=== PATIENT | female | born 1950 | race Hispanic/Latino ===

== ENCOUNTER 2018-10-28 19:10 | Emergency (ER) | payer BC, MEDICARE ==
[~2018-10-28] VITALS: Ht 149.9 cm; Wt 90.7 kg
--- OUTSIDE RECORDS SUMMARY | 2018-10-28 19:13 | XMS REPORT | Summary of Care ---
Author Author [facility] [place] Organization [facility] [place] Address Unknown Phone Unavailable Encounter HQ Encntr_alias(FIN) [id number] Date(s): 12/14/14 - 12/14/14 [facility] [place] [address] [place] [id number] [phone] Discharge Disposition: Home Attending Physician: Gilbert Mg MD Vital Signs No data available for this section Problem List No data available for this section Allergies, Adverse Reactions, Alerts No data available for this section Medications No data available for this section Results No data available for this section Immunizations No data available for this section Procedures No data available for this section Social History No data available for this section Assessment and Plan No data available for this section
--- OUTSIDE RECORDS SUMMARY | 2018-10-28 19:13 | XMS REPORT | Summary of Care ---
Author Organization Unknown Address Unknown Phone Unavailable Encounter HQ Encntr_rose([facility]) [id number] Date(s): 12/13/13 - 12/13/13 [facility] Outpatient Imaging - [address] [address] [place] Discharge Disposition: Home Physician Attending: Gilbert Mg MD Reason for Visit V76.12 - SCREEN MAMMOGRA Problem List No data available for this section Allergies, Adverse Reactions, Alerts No data available for this section Medications No data available for this section Medications Administered During Your Visit No data available for this section Immunizations No data available for this section
--- OUTSIDE RECORDS SUMMARY | 2018-10-28 19:13 | XMS REPORT | Summary of Care ---
Author Author [facility] [place] Organization [facility] [place] Address Unknown Phone Unavailable Encounter HQ Encntr_alimartin(FIN) [id number] Date(s): 01/01/16 - 01/01/16 [facility] [place] [address] [place] [phone] Discharge Disposition: Home or Self Care Attending Physician: Gilbert Mg MD Vital Signs [...]
--- OUTSIDE RECORDS SUMMARY | 2018-10-28 19:13 | XMS REPORT | Continuity of Care Document ---
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 Role Phone [facility] Unavailable Unavailable Problems Problem Status Onset Date Classification Date Reported Comments Source Pain in left knee 02/19/2018 09/02/2018 [facility] [place] [place] Encounter for screening mammogram for malignant neoplasm of breast 01/13/2018 07/28/2018 [facility] [place] LEFT KNEE Active 11/06/2017 [facility] [place] LT KNEE OA Active 11/06/2017 [facility] [place] UNK Active 12/27/2016 [facility] V76.12 - SCREEN MAMMOGRA Active 12/14/2014 [facility] [place] Encounter for screening for osteoporosis 07/28/2018 [facility] [place] Asymptomatic menopausal state 07/28/2018 [facility] [place] Other specified disorders of bone density and structure, unspecified site 07/28/2018 [facility] [place] Muscle weakness (generalized) 09/02/2018 [facility] [place] Stiffness of left knee, not elsewhere classified 09/02/2018 [facility] [place] Difficulty in walking, not elsewhere classified 09/02/2018 [facility] [place] Presence of left artificial knee joint 09/02/2018 [facility] [place] Arthritis (disorder) Active Problem 09/02/2018 [facility] [place],[facility] [place] Diabetes mellitus (disorder) Active Problem 09/02/2018 [facility] [place],[facility] [place] Hypertensive disorder, systemic arterial (disorder) Active Problem 09/02/2018 [facility] [place],[facility] [place] POLYP OF COLON Active [facility] Medications Medication Details Route Status Patient Instructions Ordering Provider Order Date Source Sodium Chloride 0.9% IV 1000 mL 1,000 mL, Rate: 25 ml/hr, Infuse over: 40 hr, Route: IV, Dosing Weight 95 kg, Total Volume: 1,000, Start date: 12/28/16 7:23:00 ENTRY LEVEL ASSISTANT MANAGER, Duration: 30 day, Stop date: 01/27/17 7:22:00 ENTRY LEVEL ASSISTANT MANAGER Inactive 12/28/2016 [facility] Losartan PO, Bedtime, 0 Refill(s) Active 12/27/2016 [facility] Fenofibrate PO, Bedtime, 0 Refill(s) Active 12/27/2016 [facility] Metformin PO, Bedtime, 0 Refill(s) Active 12/27/2016 [facility] NovoLog 8 unit, SUB-Q, TID-Before Meals, 0 Refill(s) Active 12/27/2016 [facility] Insulin Glargine 100 UNT/ML Injectable Solution [Lantus] 50 units, SUB-Q, BID, 0 Refill(s) Active 12/27/2016 [facility] Allergies, Adverse Reactions, Alerts Substance Category Reaction Severity Reaction type Status Date Reported Comments Source No Known Medication Allergies Assertion Drug allergy [facility] [place] Immunizations No Data Provided for This Section Results No Data Provided for This Section Pathology Reports No Data Provided for This Section Diagnostic Reports Report Value Date Source Spine lumbar 2 or 3 views DX EXAM: XR LUMBAR SPINE DATE: 08/01/2018 10:45 CDT ORDERING PHYSICIAN: Frederick Vicente MD CLINICAL INDICATION: - M54.5 Low back pain; TECHNIQUE: AP and lateral views of the lumbar spine COMPARISON: Unavailable FINDINGS: There are 5, nonrib-bearing lumbar vertebral bodies with normal height, shape, and alignment. There is disc space narrowing at T12-L1 with associated vacuum phenomena. There is multilevel facet arthropathy, severe at L4-L5 and L5-S1. This suspected narrowing of the L5-S1 neural foramina. Visualized soft tissues are unremarkable. IMPRESSION: Multilevel facet arthropathy most severe at L4-L5 and L5-S1 There is suspected L5-S1 neural foramen narrowings T12-L1 disc space narrowing 08/01/2018 [facility] [place] Bone Density D[employer] MA BONE DENSITY ASSESSMENT: 01/07/2018 CLINICAL DATA: Post menopausal. Z13.820 Encounter For Screening For Osteoporosis/Z13.820 Encounter For Screening For Osteoporosis COMPARISON: 01/01/2017 Left hip using a Hologic unit from [facility] with reported medium fracture risk, BMD of 0.792g/cm2, and T-score of -1.20. 01/01/2017 Right hip using a Hologic unit from [facility] with reported normal fracture risk, BMD of 0.864g/cm2, T-score of -0.60, and Z-score of 0.60. 01/01/2017 AP L1-L4 region of spine using a Hologic unit from [facility] with reported normal fracture risk, BMD of 0.967g/cm2, T-score of - 0.70, and Z-score of 1.20. FINDINGS: Bone density evaluation was performed 01/07/2018 on the right femur neck using a Hologic unit. The BMD average for the exam is 0.736 g/cm2. The T-score is - 1.00 and the Z-score is 0.50. This matches the World Health Organization's criteria for normal bone density and places the patient within normal limits of fracture risk. An additional bone density evaluation was performed 01/07/2018 on the left femur neck using a Hologic unit. The BMD average for the exam is 0.739 g/cm2. The T- score is -1.00 and the Z-score is 0.50. This matches the World Health Organization's criteria for normal bone density and places the patient within normal limits of fracture risk. An additional bone density evaluation was performed 01/07/2018 on the right hip using a Hologic unit. The BMD average for the exam is 0.903 g/cm2. The T-score is -0.30 and the Z-score is 0.90. Since the previous similar exam of 01/01/2017, there has been a +0.039 or +4.5% change in the BMD value which represents no significant interval change in bone density. This matches the World Health Organization's criteria for normal bone density and places the patient within normal limits of fracture risk. An additional bone density evaluation was performed 01/07/2018 on the left hip using a Hologic unit. The BMD average for the exam is 0.836 g/cm2. The T-score is -0.90 and the Z-score is 0.40. Since the previous similar exam of 01/01/2017, there has been a +0.044 or +5.6% change in the BMD value which represents no significant interval change in bone density. This matches the World Health Organization's criteria for normal bone density and places the patient within normal limits of fracture risk. An additional bone density evaluation was performed 01/07/2018 on the AP L2-L4 region of spine using a Hologic unit. The BMD average for the exam is 0.940 g/cm2. The T-score is -1.30 and the Z-score is 0.80. This matches the World Health Organization's criteria for osteopenia and places the patient at a medium risk for fracture. IMPRESSION: OSTEOPENIA Patient is at medium risk for fracture. This exam was interpreted at [id number] for NOHEMI Edmondson 15. Pepe Knowles M.D. cm/penrad:01/07/2018 10:07:03 It Intern(s): Nisa Williamson RT(R)(M), [facility] 01/07/2018 [facility] [place] Breast Mammo Scrn GUY incl CAD MA BILATERAL DIGITAL SCREENING MAMMOGRAM WITH CAD: 01/07/2018 CLINICAL: Z12.31 Encounter For Screening Mammogram For Malignant Neoplasm Of Breast/Z12.31 Encounter For Screening Mammogram For Malignant Neoplasm Of Breast. Current study was evaluated with a Computer Aided Detection (CAD) system. COMPARISON:Comparison is made to exams dated: 01/01/2017 mammogram, 01/01/2016 mammogram, 12/14/2014 mammogram, and 2013 mammogram - [facility]. TECHNIQUE: Mammographic views were obtained using digital acquisition. Current study was also evaluated with a Computer Aided Detection (CAD) system. FINDINGS: There are scattered fibroglandular densities in both breasts. No significant masses, calcifications, or other findings are seen in either breast. There has been no significant interval change. IMPRESSION: NEGATIVE RECOMMENDATION:There is no mammographic evidence of malignancy. A 1 year screening mammogram is recommended.(01/08/2019) This exam was interpreted at [id number] for NOHEMI Edmondson. Professional services are provided by the [facility]. Pepe Knowles M.D., cm/penrad:01/07/2018 10:17:31 It Intern(s): Lia Davila RT(R)(M), [facility] letter sent: BI-RADS 1/2 Mammogram BI-RADS: 1 Negative 01/07/2018 [facility] [place] Knee 1-2 Views unilateral DX EXAM: Knee 1-2 Views unilateral DX HISTORY: - M25.562 Pain in left knee COMPARISON: None 3 views of the left knee. FINDINGS: There is moderate medial tibiofemoral joint space narrowing. Prominent medial and lateral tibiofemoral osteophyte formation with sclerosis of the medial tibial plateau. There is irregularity of the cortex of the lateral tibial plateau which could represent a subchondral cyst or atypical osteochondral lesion. IMPRESSION: Degenerative change of the left knee as above. Consider MRI for evaluation of the cortical irregularity at the lateral tibial plateau. 10/23/2017 [facility] [place] Bone Density DXA [employer] MA BONE DENSITY EVALUATION: 01/01/2017 CLINICAL DATA: Post menopausal. Osteoporosis Screening/Osteoporosis Screening FINDINGS: Bone density evaluation was performed 01/01/2017 on the right femur neck using a Hologic unit. The BMD average for the exam is 0.747 g/cm2. The T-score is - 0.90 and the Z-score is 0.50. This matches the World Health Organization's criteria for normal bone density and places the patient within normal limits of fracture risk. An additional bone density evaluation was performed 01/01/2017 on the left femur neck using a Hologic unit. The BMD average for the exam is 0.664 g/cm2. The T- score is -1.70 and the Z-score is -0.20. This matches the World Health Organization's criteria for osteopenia and places the patient at a medium risk for fracture. An additional bone density evaluation was performed 01/01/2017 on the right hip using a Hologic unit. The BMD average for the exam is 0.864 g/cm2. The T-score is -0.60 and the Z-score is 0.60. This matches the World Health Organization's criteria for normal bone density and places the patient within normal limits of fracture risk. An additional bone density evaluation was performed 01/01/2017 on the left hip using a Hologic unit. The BMD average for the exam is 0.792 g/cm2. The T-score is -1.20. This matches the World Health Organization's criteria for osteopenia and places the patient at a medium risk for fracture. An additional bone density evaluation was performed 01/01/2017 on the AP L1-L4 region of spine using a Hologic unit. The BMD average for the exam is 0.967 g/cm2. The T-score is -0.70 and the Z-score is 1.20. This matches the World Health Organization's criteria for normal bone density and places the patient within normal limits of fracture risk. IMPRESSION: OSTEOPENIA Patient is at medium risk for fracture. This exam was interpreted at [id number] for NOHEMI Rasmussen. Pepe Knowles M.D. /penrad:01/01/2017 09:53:05 It Intern(s): Nisa Williamson RT(R)(M), [facility] 01/01/2017 [facility] [place] Breast Mammo Scrn GUY incl CAD MA BILATERAL DIGITAL SCREENING MAMMOGRAM WITH CAD: 01/01/2017 CLINICAL: Routine/Screening. Current study was evaluated with a Computer Aided Detection (CAD) system. COMPARISON:Comparison is made to exams dated: 01/01/2016 mammogram, 12/14/2014 mammogram, 2013 [address] - [facility], 06/28/2009 mammogram, and 07/17/2007 mammogram. TECHNIQUE: Mammographic views were obtained using digital acquisition. Current study was also evaluated with a Computer Aided Detection (CAD) system. There are scattered fibroglandular densities in both breasts. FINDINGS: Multiple bilateral oval masses are fluctuating in size, a pattern consistent with benign etiology. No significant masses, calcifications, or other findings are seen in either breast. There has been no significant interval change. IMPRESSION: BENIGN RECOMMENDATION:There is no mammographic evidence of malignancy. A 1 year screening mammogram is recommended.(01/02/2018) This exam was interpreted at [id number] for NOHEMI Rasmussen. Pepe Knowles M.D. /penrad:01/01/2017 10:28:45 It Intern(s): Lia Davila RT(R)(M), [facility] letter sent: BI-RADS 1/2 Mammogram BI-RADS: 2 Benign 01/01/2017 [facility] [place] Chest 2 views DX Clinical Indication: Coughing - pre-op. Comparison: None. TECHNIQUE: PA and lateral chest radiographs were performed. (2 views) FINDINGS: LUNGS: Normal lung volumes. No interstitial or airspace opacities. No pleural effusions or pneumothorax. HEART AND MEDIASTINUM: The heart size is normal. The pulmonary vasculature is normal. There is a mildly tortuous thoracic aorta. The trachea is midline. OSSEOUS STRUCTURES: No acute abnormality seen. IMPRESSION: 1. No acute cardiopulmonary disease. SL: [id number] 12/27/2016 [facility] Hand 3 views DX EXAM: Hand 3 views DX HISTORY: - left hand/thumb pain COMPARISON: None 3 views of the left hand. FINDINGS: Mild degenerative change at the DIP joint of the thumb carpometacarpal joint. No fracture or dislocation. No evidence of erosive change or significant soft tissue swelling. Mild osteopenia. IMPRESSION: Mild degenerative osteoarthritis. 11/03/2016 [facility] [place] Digital Mammo Screening Guy MA - DIGITAL MAMMO SCREENING GUY MA BILATERAL DIGITAL SCREENING MAMMOGRAM WITH CAD: 01/01/2016 CLINICAL: Screening. Family history of breast cancer includes: Paternal aunt at age 75. Current study was evaluated with a Computer Aided Detection (CAD) system. Comparison is made to exams dated: 12/14/2014 mammogram, [address] - [facility], 06/28/2009 mammogram and 07/17/2007 mammogram. There are scattered fibroglandular densities in both breasts. Findings: No significant masses, calcifications, or other findings are seen in either breast. There has been no significant interval change. IMPRESSION: BENIGN There is no mammographic evidence of malignancy. A 1 year screening mammogram is recommended. Professional services are provided by the [facility]. Tanay hackett/felix:01/03/2016 10:30:39 It Intern: Sobia Montano RT(R)(M), [facility] This exam was dictated and interpreted by [id number] at [facility]. letter sent: Normal exam Mammogram BI-RADS: 2 Benign 01/01/2016 [facility] [place] Digital Mammo Screening Guy MA - DIGITAL MAMMO SCREENING GUY MA BILATERAL DIGITAL SCREENING MAMMOGRAM WITH CAD: 12/14/2014 CLINICAL: Routine. Current study was evaluated with a Computer Aided Detection (CAD) system. Comparison is made to exams dated: [address] mamm[address] - [facility], 06/28/2009 mammogram and 07/17/2007 mammogram. There are scattered fibroglandular densities in both breasts. No significant masses, calcifications, or other findings are seen in either breast. There has been no significant interval change. IMPRESSION: NEGATIVE There is no mammographic evidence of malignancy. A 1 year screening mammogram is recommended. Silvano kathleen/penrad:12/14/2014 11:44:43 It Intern: Lia Daivla [facility] This exam was dictated and interpreted by [id number] for [employer]. letter sent: Normal exam Mammogram BI-RADS: 1 Negative 12/14/2014 [facility] [place] Consultation Notes No Data Provided for This Section Discharge Summaries No Data Provided for This Section History and Physicals No Data Provided for This Section Vital Signs Vital Sign Value Date Comments Source Respitory Rate 16 12/28/2016 [facility] Systolic (mm Hg) 128 12/28/2016 [facility] Diastolic (mm Hg) 74 12/28/2016 [facility] Respitory Rate 16 12/28/2016 [facility] Systolic (mm Hg) 130 12/28/2016 [facility] Diastolic (mm Hg) 60 12/28/2016 [facility] Respitory Rate 18 12/28/2016 [facility] Systolic (mm Hg) 125 12/28/2016 [facility] Diastolic (mm Hg) 58 12/28/2016 [facility] Heart Rate 64 12/27/2016 [facility] Temperature Oral (F) 98.1 F 12/27/2016 [facility] BMI Calculated 42.3 12/27/2016 [facility] Weight 95 12/27/2016 [facility] Height 149.86 cm 12/27/2016 [facility] Encounters Location Location Details Encounter Type Encounter Number Reason For Visit Attending Provider ADM Date DC Date Status Source [facility] [place] [facility] Services [id number] Gilbert Mg 2013 12/14/2013 [facility] [place] [facility] [place] [facility] [id number] Gilbert Mg 12/14/2014 12/15/2014 [facility] [place] [facility] [place] [facility] [id number] Gilbert Mg 01/01/2016 01/02/2016 [facility] [place] [facility] [place] [facility] [id number] Brian Islas 11/03/2016 11/04/2016 [facility] [place] [facility] [id number] Villa Cruz 12/28/2016 12/28/2016 [facility] [place] Out[facility] Di[facility] [id number] Brian Islas 01/01/2017 01/02/2017 [facility] [place] [facility] [place] [facility] [id number] Frederick Vicente 10/23/2017 10/24/2017 [facility] [place] [facility] [place] [facility] [id number] Armaan Kendall 11/13/2017 2017 [facility] [place] [facility] [place] [facility] [id number] Armaan Kendall 12/14/2017 01/13/2018 [facility] [place] [facility] [place] [facility] [id number] Frederick Vicente 01/07/2018 01/08/2018 [facility] [place] [facility] [place] [facility] [id number] Armaan Kendall 01/14/2018 02/13/2018 [facility] [place] [facility] [place] [facility] [id number] Frederick Vicente 08/01/2018 08/02/2018 [facility] [place] Procedures Procedure Code Date Perfomer Comments Source section<sup>1</sup> [id number] X 4 [facility] [place],[facility] [place] Cholecystectomy [id number] [facility] [place],[facility] [place] Colonoscopy [id number] [facility] [place],[facility] [place] Knee arthroplasty [id number] [facility] [place] [place] Tonsillectomy [id number] [facility] [place],[facility] [place] Assessment and Plan No Data Provided for This Section Plan of Care No Data Provided for This Section Social History Social History Date Source Social History TypeResponse Substance Abuse Use: None. Alcohol Never Smoking Status Never smoker; Exposure to Tobacco Smoke None; Cigarette Smoking Last 365 Days No; Reg Smoking Cessation Counseling No entered on: 12/27/16 12/27/2016 [facility] [place] Social History TypeResponse Substance Abuse Use: None. Alcohol Never Smoking Status Never smoker; Exposure to Tobacco Smoke None; Cigarette Smoking Last 365 Days No; Reg Smoking Cessation Counseling No 12/27/2016 [facility] Social History TypeResponse Substance Abuse Use: None. Alcohol Never Smoking Status Never smoker; Exposure to Tobacco Smoke None; Cigarette Smoking Last 365 Days No; Reg Smoking Cessation Counseling No entered on: 12/27/16 [facility] Family History No Data Provided for This Section Advance Directives No Data Provided for This Section Functional Status No Data Provided for This Section
--- OUTSIDE RECORDS SUMMARY | 2018-10-28 19:14 | XMS REPORT | Summary of Care ---
Author Author [facility] [place] Organization [facility] [place] Address Unknown Phone Unavailable Encounter HQ Magi_rose(FIN) [id number] Date(s): 01/01/17 - 01/01/17 [facility] [place] [facility] [address] [place] [phone] Discharge Disposition: Home or Self Care Attending Physician: Brian Islas MD Vital Signs No data available for this section Problem List Condition Effective Dates Status Health Status Informant Arthritis(Confirmed) Active Diabetes Active mellitus(Confirmed) Hypertension(Confirm Active ed) Allergies, Adverse Reactions, Alerts Substance Reaction Severity Status NKDA Active Medications No data available for this section Results No data available for this section Immunizations No data available for this section Procedures Procedure Date Related Diagnosis Body Site section1 Cholecystectomy Colonoscopy Knee arthroplasty Tonsillectomy 1X 4 Social History Social History Type Response Substance Abuse Use: None. Alcohol Never Smoking Status Never smoker; Exposure to Tobacco Smoke None; Cigarette Smoking Last 365 Days No; Reg Smoking Cessation Counseling No Assessment and Plan No data available for this section
--- OUTSIDE RECORDS SUMMARY | 2018-10-28 19:14 | XMS REPORT | Summary of Care ---
Author Author [facility] [place] Organization [facility] [place] Address Unknown Phone Unavailable Encounter HQ Encntr_alias(FIN) [id number] Date(s): 11/03/16 - 11/03/16 [facility] [place] [address] [place] [address] 7 [phone] Discharge Disposition: Home or Self Care Attending [...]
--- OUTSIDE RECORDS SUMMARY | 2018-10-28 19:14 | XMS REPORT ---
[facility] Address Unknown Phone Unavailable Care Team Providers Care Medical Territory Manager Name Role Phone Unavailable Unavailable Payers Payer Name Policy Type Policy Number Effective Date Expiration Date Problems This patient has no known problems. Allergies, Adverse Reactions, Alerts Allergy Name Allergy Type Status Severity Reaction(s) Onset Date Inactive Date Treating Clinician Comments No Known Allergies DA Active U 2017-11-06 00:00:00 No Known Allergies DA Active U 2017-10-30 00:00:00 No Known Allergies DA Active U 2012-12-20 00:00:00 Medications This patient has no known medications.
--- OUTSIDE RECORDS SUMMARY | 2018-10-28 19:14 | XMS REPORT | Summary of Care ---
Author Author [facility] Address Unknown Phone Unavailable Encounter HQ Bravo(FIN) [id number] Date(s): 12/14/17 - 01/12/18 [facility] Encounter Diagnosis Pain in left knee (Final) - 01/17/18 Stiffness of left knee, not elsewhere classified (Final) - Muscle weakness (generalized) (Final) - Difficulty in walking, not elsewhere classified (Final) - Presence of left artificial knee joint (Final) - Discharge Disposition: Home or Self Care Attending Physician: Armaan Kendall MD Vital Signs No data available for this section Problem List Condition Effective Dates Status Health Status Informant Arthritis(Confirmed) Active Diabetes Active mellitus(Confirmed) Hypertension(Confirm Active ed) Allergies, Adverse Reactions, Alerts No Known Medication Allergies Medications No data available for this section Results No data available for this section Immunizations No data available for this section Procedures Procedure Date Related Diagnosis Body Site Status section1 Completed Cholecystectomy Completed Colonoscopy Completed Knee arthroplasty Completed Tonsillectomy Completed 1X 4 Social History Social History Type Response Substance Abuse Use: None. Alcohol Never Smoking Status Never smoker; Exposure to Tobacco Smoke None; Cigarette Smoking Last 365 Days No; Reg Smoking Cessation Counseling No entered on: 12/27/16 Assessment and Plan No data available for this section
--- OUTSIDE RECORDS SUMMARY | 2018-10-28 19:14 | XMS REPORT | Summary of Care ---
Author Author [facility] [place] Organization [facility] [place] Address Unknown Phone Unavailable Encounter HQ Bravo(FIN) [id number] Date(s): 08/01/18 - 08/01/18 [facility] [place] [address] [place] [phone] Discharge Disposition: Home or Self Care Attending Physician: Frederick Vicente MD Referring Physician: Frederick Vicente MD Vital Signs No data available for [...]
--- OUTSIDE RECORDS SUMMARY | 2018-10-28 19:14 | XMS REPORT | Summary of Care ---
Author Author [facility] [place] Organization [facility] [place] Address Unknown Phone Unavailable Encounter HQ Bravo(FIN) [id number] Date(s): 10/23/17 - 10/23/17 [facility] [place] [address] [place] [phone] Encounter Diagnosis Pain in left knee (Final) - 10/29/17 Discharge Disposition: Home or Self Care Attending [...]
--- OUTSIDE RECORDS SUMMARY | 2018-10-28 19:14 | XMS REPORT | Summary of Care ---
Author Author [facility] [place] Organization [facility] [place] Address Unknown Phone Unavailable Encounter HQ Bravo(FIN) [id number] Date(s): 01/07/18 - 01/07/18 [facility] [place] [address] [place] [phone] Encounter Diagnosis Encounter for screening mammogram for malignant neoplasm of breast (Final) - 01/12/18 Encounter for screening for osteoporosis (Final) - Asymptomatic menopausal state (Final) - Other specified disorders of bone density and structure, unspecified site (Final) - Discharge Disposition: Home or Self [...]
--- OUTSIDE RECORDS SUMMARY | 2018-10-28 19:14 | XMS REPORT | Summary of Care ---
Author Author [facility] Address Unknown Phone Unavailable Encounter HQ Magi_rose(FIN) [id number] Date(s): 01/14/18 - 02/12/18 [facility] Encounter Diagnosis Pain in left knee (Final) - 02/18/18 Muscle weakness (generalized) (Final) - Stiffness of left knee, not elsewhere classified (Final) - Difficulty in walking, not elsewhere [...]
--- OUTSIDE RECORDS SUMMARY | 2018-10-28 19:14 | XMS REPORT | Summary of Care ---
Author Author [facility] Organization [facility] Address Unknown Phone Unavailable Encounter JEFFERSON Cordon(SONAL) [id number] Date(s): 12/28/16 - 12/28/16 [facility] [address] [place] [address]- Discharge Disposition: Home or Self Care Attending Physician: Villa Cruz MD Referring Physician: Villa Cruz MD Vital Signs 1 2 3 Most recent to oldest [Reference Range]: 149.86 cm (12/27/16 10:43 AM) Height 98.1 DegF (12/27/16 10:55 AM) Temperature Oral [96.4-99.1 DegF] 128/74 mmHg (12/28/16 10:25 AM) 130/60 mmHg (12/28/16 10:15 AM) 125/58 mmHg (12/28/16 10:09 AM) Blood Pressure [90-140/60-90 mmHg] 16 BRMIN (12/28/16 10:25 AM) 16 BRMIN (12/28/16 10:15 AM) 18 BRMIN (12/28/16 10:09 AM) Respiratory Rate [14-20 BRMIN] 64 bpm (12/27/16 10:55 AM) Peripheral Pulse Rate [60-100 bpm] 95 kg (12/27/16 10:43 AM) Weight 42.3 m2 (12/27/16 10:43 AM) Body Mass Index Problem List Condition Effective Dates Status Health Status Informant Arthritis(Confirmed) Active Diabetes Active mellitus(Confirmed) Hypertension(Confirm Active ed) Allergies, Adverse Reactions, Alerts Substance Reaction Severity Status NKDA Active Medications fenofibrate PO, Bedtime, 0 Refill(s) Start Date: 12/27/16 Status: Ordered Lantus 100 units/mL 50 units, SUB-Q, BID, 0 Refill(s) Start Date: 12/27/16 Status: Ordered losartan PO, Bedtime, 0 Refill(s) Start Date: 12/27/16 Status: Ordered metFORMIN PO, Bedtime, 0 Refill(s) Start Date: 12/27/16 Status: Ordered NovoLOG 8 unit, SUB-Q, TID-Before Meals, 0 Refill(s) Start Date: 12/27/16 Status: Ordered Sodium Chloride 0.9% IV 1000 mL 1,000 mL, Rate: 25 ml/hr, Infuse over: 40 hr, Route: IV, Dosing Weight 95 kg, To cassius Volume: 1,000, Start date: 12/28/16 7:23:00 [employer], Duration: 30 day, Stop date : 01/27/17 7:22:00 [employer]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
--- OUTSIDE RECORDS SUMMARY | 2018-10-28 19:14 | XMS REPORT | Summary of Care ---
Author Author [facility] Address Unknown Phone Unavailable Encounter HQ Bravo(FIN) [id number] Date(s): 11/13/17 - 12/12/17 [facility] Encounter Diagnosis Pain in left knee (Final) - 12/17/17 Muscle weakness (generalized) (Final) - Presence of left artificial knee joint (Final) - Stiffness of left knee, not elsewhere classified (Final) - Difficulty in walking, not elsewhere classified (Final) - Discharge Disposition: Home or Self [...]
[2018-10-28] MEDS ORDERED: ACETAMINOPHEN 325 MG TAB PO ONE (21:30)
[2018-10-28] MEDS ORDERED: ONDANSETRON HCL INJ 2MG/ML 2ML 2 MG/ML VIAL IV ONE (21:35)
[2018-10-28] MEDS ORDERED: DIATRIZOATE MEGL/DIATRIZOA SOD 30 ML BTL PO ONE (22:05)
[2018-10-28 22:15] LABS: BASOPHILS # (AUTO) 0.1 (0.0-0.1); BASOPHILS % 0.8 % (0.0-1.0); EOSINOPHILS # (AUTO) 0.1 (0.0-0.4); EOSINOPHILS % 1.1 % (0.0-6.0); HEMATOCRIT 38.2 % (34.2-44.1); HEMOGLOBIN 12.4 g/dL (12.0-16.0); LYMPHOCYTES # (AUTO) 1.8 (1.0-3.2); MEAN CORPUSCULAR HEMOGLOBIN 28.7 pg (28-32); MEAN CORPUSCULAR HGB CONC 32.5 g/dL (31-35); MEAN CORPUSCULAR VOLUME 88.4 fL (81-99); MONOCYTES # (AUTO) 0.8 (0.2-0.8); MONOCYTES % 7.2 % (4.4-11.3); NEUTROPHILS # (AUTO) 7.9 (2.1-6.9); NEUTROPHILS % 73.5 % (38.7-80.0); PLATELET COUNT 297 x10e3/uL (140-360); RED BLOOD COUNT 4.32 x10e6/uL (3.6-5.1); RED CELL DISTRIBUTION WIDTH 13.2 % (11.7-14.4)
--- NOTE | 2018-10-28 22:31 | Diagnostic Imaging Report ---
EXAMINATION: CHEST SINGLE (NOT PORTABLE) INDICATION: Short of breath, fever COMPARISON: None FINDINGS: AP view TUBES and LINES: None. LUNGS: Lungs are not well inflated. Minimal bibasilar hazy opacities, likely bibasilar atelectasis. There is no evidence of pneumonia or pulmonary edema. Mild central pulmonary vascular prominence. PLEURA: No pleural effusion or pneumothorax. HEART AND MEDIASTINUM: The cardiomediastinal silhouette is unremarkable. BONES AND SOFT TISSUES: No acute osseous lesion. Soft tissues are unremarkable. Degenerative changes in the thoracic spine. UPPER ABDOMEN: No free air under the diaphragm. IMPRESSION: No acute thoracic abnormality. Mild central pulmonary vascular congestion. Signed by: Eddie Topete DO on 10/28/2018 10:27 PM
[2018-10-28 22:36] LABS: AMYLASE 137 U/L (25-125); LIPASE 69 U/L (8-78)
[2018-10-28 22:41] LABS: ALBUMIN 4.2 g/dL (3.5-5.0); ALBUMIN/GLOBULIN RATIO 1.1 (0.8-2.0); ANION GAP 15.1 mmol/L (8-16); CALCIUM 10.4 mg/dL (8.4-10.2); CREATININE, SERUM 1.39 mg/dL (0.57-1.11); POTASSIUM 4.1 mmol/L (3.5-5.1)
--- NOTE | 2018-10-29 00:45 | Diagnostic Imaging Report ---
EXAM: CT Abdomen and Pelvis WITHOUT IV contrast, WITH oral contrast INDICATION: Right lower quadrant pain, fever COMPARISON: abdominal CT 12/30/2009. TECHNIQUE: Abdomen and pelvis were scanned utilizing a multidetector helical scanner from the lung base to the pubic symphysis without administration of IV contrast. Absence of intravenous contrast decreases sensitivity for detection of focal lesions and vascular pathology. Coronal and sagittal reformations were obtained. Routine protocol was performed. IV CONTRAST: None ORAL CONTRAST: Gastroview COMPLICATIONS: None RADIATION DOSE: Total DLP: 750 mGy*cm Estimated effective dose: (DLP x 0.015 x size factor) mSv CTDIvol has been reviewed. It is below the limits set by the Radiation Protocol Committee (RPC). Dose modulation, iterative reconstruction, and/or weight based adjustment of the mA/kV was utilized to reduce the radiation dose to as low as reasonably achievable. FINDINGS: LINES and TUBES: None. LOWER THORAX: Unremarkable HEPATOBILIARY: Decreased hepatic attenuation. No focal hepatic lesions. No biliary ductal dilation. Resolution of the right inferior hepatic lobe cyst seen on abdominal CT from 2009. GALLBLADDER: There are cholecystectomy clips. SPLEEN: No splenomegaly. PANCREAS: No focal masses or ductal dilatation. ADRENALS: No adrenal nodules KIDNEYS/URETERS: No hydronephrosis. No cystic or solid mass lesions. No stones. GI TRACT: No abnormal distention, wall thickening, or evidence of bowel obstruction. Appendix is normal. PELVIC ORGANS/BLADDER: Unremarkable. LYMPH NODES: No lymphadenopathy. VESSELS: Unremarkable. PERITONEUM / RETROPERITONEUM: No free air or fluid. BONES: Degenerative changes in the spine.. SOFT TISSUES: Unremarkable. IMPRESSION: 1. No acute intraabdominal or intrapelvic CT abnormality. 2. Hepatic steatosis. Signed by: Eddie Topete DO on 10/29/2018 12:42 AM
[2018-10-29 00:56] LABS: BILIRUBIN,URINE NEGATIVE (NEGATIVE); CLARITY,URINE CLEAR (CLEAR); COLOR,URINE YELLOW (YELLOW); KETONES,URINE NEGATIVE (NEGATIVE); LEUKOCYTE ESTERASE ,URINE NEGATIVE (NEGATIVE); NITRITE,URINE NEGATIVE (NEGATIVE); PROTEIN,URINE DIPSTICK NEGATIVE (NEGATIVE); URINE UROBILINOGEN 0.2 mg/dL (0.2 - 1)
[2018-10-29 01:10] LABS: BACTERIA,URINE FEW /HPF; EPITHELIAL CELLS,URINE FEW /LPF; RBC,URINE 0-5 /HPF (0-5); WBC,URINE (MAN) 0-5 /HPF (0-5)
[2018-10-29 01:26] VITALS: BP 146/89
== END 2018-10-29 01:53 | disposition home or self-care (01) ==
LOC: ER 19:10
DX: R50.9 Fever, unspecified (principal); R10.31 Right lower quadrant pain; R10.33 Periumbilical pain; R11.0 Nausea; I10 Essential (primary) hypertension; E11.9 Type 2 diabetes mellitus without complications; E78.5 Hyperlipidemia, unspecified
CPT/HCPCS: 36415; 71045; 74176; 80053; 81001; 82150; 83690; 85025; 87086; 99284; J2405

== ENCOUNTER 2021-07-15 11:22 | Emergency (ER) | payer OTHER, MEDICARE ==
[~2021-07-15] VITALS: Ht 149.9 cm; Wt 90.7 kg
[2021-07-15] MEDS ORDERED: METHYLPREDNISOLONE SOD SUCC 125 MG/2ML VIAL IV ONE (12:45)
[2021-07-15] MEDS ORDERED: ALBUTEROL/IPRATROPIUM 3 ML NEB NEB PRN (12:45)
[2021-07-15 13:10] LABS: BASOPHILS % 0.5 % (0.0-1.0); EOSINOPHILS # (AUTO) 0.1 (0.0-0.4); EOSINOPHILS % 2.2 % (0.0-6.0); HEMATOCRIT 37.5 % (34.2-44.1); LYMPHOCYTES # (AUTO) 1.7 (1.0-3.2); LYMPHOCYTES % 42.9 % (18.0-39.1); MEAN CORPUSCULAR HEMOGLOBIN 29.3 pg (28-32); MEAN CORPUSCULAR VOLUME 91.5 fL (81-99); MONOCYTES # (AUTO) 0.3 (0.2-0.8); MONOCYTES % 6.7 % (4.4-11.3); NEUTROPHILS # (AUTO) 1.9 (2.1-6.9); NEUTROPHILS % 47.2 % (38.7-80.0); PLATELET COUNT 237 x10e3/uL (140-360); RED CELL DISTRIBUTION WIDTH 13.2 % (11.7-14.4)
[2021-07-15 13:26] LABS: ALBUMIN 3.6 g/dL (3.5-5.0); ALBUMIN/GLOBULIN RATIO 0.9 (0.8-2.0); ANION GAP 12.1 mmol/L (8-16); CALCIUM 8.8 mg/dL (8.4-10.2); CREATININE, SERUM 1.22 mg/dL (0.57-1.11); POTASSIUM 4.1 mmol/L (3.5-5.1)
[2021-07-15 14:46] LABS: BAND NEUTROPHILS % (MANUAL) 2 %; EOSINOPHILS % (MANUAL) 1 % (0-7); LYMPHOCYTES % (MANUAL) 43 % (19-48); METAMYELOCYTES % (MANUAL) 3 % (0-0); MONOCYTES % (MANUAL) 5 % (3.4-9.0); NEUTROPHILS % (MANUAL) 41 % (40-74)
[2021-07-15] MEDS ORDERED: BENZONATATE200 MG PO (15:14)
[2021-07-15] MEDS ORDERED: PROVENTIL HFA6.7 GM INH (15:14)
[2021-07-15] MEDS ORDERED: DOXYCYCLINE HY100 M3 PO (15:14)
[2021-07-15 15:35] VITALS: BP 131/82
== END 2021-07-15 15:38 | disposition home or self-care (01) ==
LOC: ER 12:07
DX: R50.9 Fever, unspecified (principal); J10.1 Influenza due to other identified influenza virus with other respiratory manifestations; Z20.822 Contact with and (suspected) exposure to COVID-19
CPT/HCPCS: 36415; 71045; 80053; 85025; 87040; 94640; 94799; 99284; J2930; U0002